=== PATIENT | female | born 1975 | race Caucasian/White ===

== ENCOUNTER 2018-04-08 15:26 | Emergency (ER) | payer MEDICAID ==
[~2018-04-08] VITALS: Ht 154.9 cm; Wt 75.3 kg
[2018-04-08 15:40] VITALS: Ht 154.9 cm; Wt 75.3 kg
[2018-04-08 17:12] VITALS: BP 132/86
== END 2018-04-08 17:12 | disposition home or self-care (01) ==
LOC: ED 15:26
DX: R21 Rash and other nonspecific skin eruption (principal)